=== PATIENT | female | born 1955 | race Hispanic/Latino ===

== ENCOUNTER → 2020-05-07 | Outpatient (CLI) | payer OTHER | END | disposition home or self-care (01) | LOC: OIH 17:01 | PROVIDERS: ATTEND Nurse Practitioner Adult Health | DX: Z13.6 Encounter for screening for cardiovascular disorders (principal) | CPT/HCPCS: 75571 ==

== ENCOUNTER → 2024-07-26 | Outpatient (CLI) | payer MEDICARE ==
[~2024-07-26] MED LIST: IOHEXOL 350 MG/ML 100ML INFUS..BTL IV ONE
--- NOTE | 2024-07-26 10:36 | HMCIMG ---
CT CARDIAC ANGIO W/CONT. CCTA HISTORY: Chest pain COMPARISON: None TECHNIQUE: Multiple sequential axial images of the chest were obtained along with the CT angiogram of the chest study. Patient was given 100 cc of Omnipaque through intravenous route. FINDINGS: There is no evidence of pulmonary nodule or parenchymal disease. No pleural effusion or pericardial effusion is seen. There is no evidence of pneumothorax. There are normal size mediastinal and hilar lymph nodes. The heart is not enlarged. Degenerative changes of the thoracolumbar spine are present. IMPRESSION: 1. No evidence of pulmonary nodule or effusion is seen. Please see CT angiogram report of coronary arteries.
== END | disposition home or self-care (01) ==
LOC: RAH 08:34
PROVIDERS: ATTEND Internal Medicine Cardiovascular Disease
DX: R00.2 Palpitations (principal); R07.9 Chest pain, unspecified; M47.815 Spondylosis without myelopathy or radiculopathy, thoracolumbar region
CPT/HCPCS: 75574; Q9967

== ENCOUNTER → 2025-01-05 | Outpatient (CLI) | payer MEDICARE ==
--- NOTE | 2025-01-06 08:13 | HMCIMG ---
EXAM: Ultrasound Abdomen ??? Complete CLINICAL HISTORY: Unspecified abdominal pain TECHNIQUE: Real-time ultrasound of the abdomen (complete) with image documentation. COMPARISON: None provided. FINDINGS: LIVER: Measures approximately 13 cm in length; mildly enlarged. Normal echotexture and smooth contour. No focal lesion or biliary dilatation. Main portal vein demonstrates hepatopetal flow with a velocity of 18 cm/s. GALLBLADDER: Surgically absent. COMMON BILE DUCT: Measures 5 mm; not dilated. PANCREAS: Visualized portions are within normal limits. KIDNEYS: Right kidney measures 9.4 ??? 4.4 ??? 3.7 cm; left kidney measures 9.8 ??? 4.2 ??? 3.3 cm. Both kidneys demonstrate normal cortical echogenicity and corticomedullary differentiation. No calculi, cysts, or hydronephrosis. SPLEEN: Measures 9 cm in length. Normal echotexture. AORTA: Normal calibre with proximal, mid, and distal diameters measuring 2.2 cm, 1.8 cm, and 1.7 cm respectively. No aneurysm or dissection. IVC: Patent. MISCELLANEOUS: No free fluid or other abnormality detected. IMPRESSION: * Mild hepatomegaly with otherwise normal hepatic echotexture and hepatopetal portal venous flow. * No ascites or intra-abdominal mass. /[place]
== END | disposition home or self-care (01) ==
LOC: RAH 09:23
PROVIDERS: ATTEND Family Medicine
DX: R16.0 Hepatomegaly, not elsewhere classified (principal); R10.13 Epigastric pain; Z90.49 Acquired absence of other specified parts of digestive tract
CPT/HCPCS: 76700